=== PATIENT | female | born 1990 | race Hispanic/Latino ===

== ENCOUNTER 2018-05-17 21:06 | Emergency (ER) | payer OTHER ==
[2018-05-17 21:58] LABS: KETONE, URINE AUTO RFX NEGATIVE (NEGATIVE); LEUKOCYTE ESTERASE UR AUTO RFX 3+ (NEGATIVE); NITRITE, URINE AUTO RFX NEGATIVE (NEGATIVE); RBC, URINE AUTO RFX 24 /HPF (0-3); SQUAM EPITHELIAL CELL UR AURFX 1 /HPF (0-6); WBC, URINE AUTO RFX 146 /HPF (0-3)
[2018-05-17] MEDS: BACTRIM 160MG/800MG DS TAB PO (22:35)
== END 2018-05-17 22:37 | disposition home or self-care (01) ==
LOC: M ED 21:06
DX: N30.00 Acute cystitis without hematuria (principal)
CPT/HCPCS: 81001

== ENCOUNTER 2019-01-16 11:14 | Outpatient (CLI) | payer OTHER ==
[~2019-01-16] VITALS: Ht 170.2 cm; Wt 78.1 kg
[~2019-01-16 11:14] MED LIST: BACT800T5 PO
[2019-01-16 11:27] VITALS: BP 123/71
[2019-01-16] MEDS ORDERED: PRENTAB7 PO (11:32)
[2019-01-16 12:12] VITALS: BP 125/60
[2019-01-16] MEDS ORDERED: PROG50IN5 IM (12:53)
== END 2019-01-16 12:22 | disposition home or self-care (01) ==
LOC: M LDO 11:14
PROVIDERS: ATTEND Obstetrics & Gynecology
DX: O26.892 Other specified pregnancy related conditions, second trimester (principal); Z3A.24 24 weeks gestation of pregnancy; N89.8 Other specified noninflammatory disorders of vagina
CPT/HCPCS: 76815; G0378; G0463

== ENCOUNTER 2019-04-29 14:05 | Inpatient (IN) | payer OTHER ==
[2019-04-29] VITALS (16 sets, daily range): BP systolic 104–134; BP diastolic 53–74
[~2019-04-29] VITALS: Ht 170.2 cm; Wt 79.0 kg
[~2019-04-29 14:05] MED LIST changes: +PRENTAB7 PO; +PROG50IN5 IM
[2019-04-29] MEDS ORDERED: VITA-158 PO (15:03)
[2019-04-29] MEDS ORDERED: FERR325T3 PO (15:03)
[2019-04-29] MEDS ORDERED: LR 1,000 ML IV SCH (15:20)
[2019-04-29] MEDS ORDERED: PENICILLIN G POTASSIUM IV 5 MU in D5W MINI-BAG PLUS 100 ML IV STA (16:03)
[2019-04-29] MEDS ORDERED: LACTATED RINGER'S 1000 ML IV STA (16:03)
[2019-04-29] MEDS ORDERED: miSOPROStol 25 MCG 1/4 TAB (S0191) PV ONE (16:15)
[2019-04-29 16:20] LABS: HEMATOCRIT 35.9 % (36.0-47.0); HEMOGLOBIN 12.2 g/dl (12.0-15.5); MEAN CORPUSCULAR HEMOGLOBIN 28.7 pg (27.0-33.0); MEAN CORPUSCULAR VOLUME 84.5 fl (80.0-96.0); PLATELET COUNT, AUTOMATED 233 10^3/uL (150-450); RED BLOOD COUNT 4.25 10^6/uL (4.00-5.40); WHITE BLOOD COUNT 10.9 10^3/uL (4.0-10.0)
--- NOTE | 2019-04-29 16:37 | HPEPDOC ---
Obstetrical History & Physical General Date of Admission Apr 29, 2019 at 14:05 History of Present Illness Danielle is a 29yo with SIUP at 38w5d by lmp c/w early u/s presenting for IOL for continued decreased movement. She was seen the end of last week in clinic for DFM and had BPP 06/29, came back today for NST. She notes that she felt no movement at all yesterday and only 1 movement this morning. Prior to the end of last week, she felt daily robust movement, so this is a significant change and she has been quite worried. Given the persistence of DFM, especially since patient felt no movement at all yesterday, and only 1 movement this morning, my recommendation was for IOL. No LOF/vaginal bleeding, no regular/painful ctx. Chief Complaint: Induction of labor Information Provided By: Patient Care Care: Good Care Dating Final EDC: May 08, 2019 Final EDC by: LMP, 1st trimester (US) Antepartum Course Diagnos(e)s History of prior delivery at 35wk in 2009 (received Terminous), reactive RPR but negative FTS-AB, anemia on iron/vitamin C, varicella non-immune, Rh negative (rhogam 02/14), GBS carrier Height (inches): 64 Pre- weight (lbs.): 163 Admission Weight (lbs.): 176 Change in Weight (lbs.): 13 Past Medical History Past Obstetrical History : Past Obstetrical History: Multigravida (2006 uncomplicated 37wk F [id number], 2009 uncomplicated PTD at 35wk M [id number] ( in NICU 20d per patient, maybe related to infection?)) MARKETING REP History: Abnormal Pap (LGSIL Oct 2018 will have PP colpo) Past Medical History Medical History Benign Surgical History: Breast augmentation Family History Significant Family History: No pertinent family hx Social History Marital Status: Family situation: Spouse/partner home Psychosocial History: No pertinent psych hx * Smoker: non-smoker Alcohol: Denies Drugs: denies Imunizations Tdap status: current Influenza Status: current Allergies Coded Allergies: No Known Allergies (Unverified , 05/17/18) Medications Scheduled Ascorbic Acid (Vitamin C) 500 Mg Tablet, 1 TAB PO TID for WITH IRON Ferrous Sulfate (Ferrous Sulfate) 325 Mg Tablet.dr, 1 TAB PO TID Pnv No.95/Ferrous Fum/Folic AC ( Vitamins Tablet) 1 Tab Tab, 1 TAB PO DAILY Physical Examination Physical Examination GENERAL: Alert and oriented times three. ABDOMEN: Gravid and non-tender to touch. FETUS: Is vertex (VTX) by sterile vaginal examination (SVE) EXTREMITIES: No edema. Laboratory Data [facility] Laboratory Tests 2 04/29/19 14:19: Serology Scanned Report Hepatitis B Testing 04/29/19 15:39: CBC/BMP H/H 10.6/32.4, plt 221 Pertinent Laboratoy Data Blood Type: O- RBC Antibody Screen: Negative HIV: Negative Hepatitis B: Negative Hepatitis C: Unknown Rapid Plasma Reagin: Positive (T pal antibody negative) Rubella: Immune Varicella: Nonreactive Chlamydia/Gonorrhea: Negative Group B Streptococcus: Positive Glucose Tolerance Test: 148 (83/147/128/116) Anatomy Ultrasound Ultrasound Date: Dec 19, 2018 Placenta Location: Posterior Normal Anatomy: Yes Placenta Previa: No Steroid Therapy Steroid Therapy: No Vaginal Examination Dilation: 4 cm Effacement: 70% Station: -2 Cervical Consistency: Soft Cervical Position: Middle Presentation: Cephalic presentation Assessment Heart Rate (FHR): 120 Variability: Moderate Accelerations: Positive Decelerations: None, Late (subtle- resolved with IV hydration and re- positioning) Tocometer Contractions: Yes Frequency: irregular Assessment/Plan Assessment Danielle is a 29yo with SIUP at 38w5d by lmp c/w early u/s presenting for IOL for continued decreased movement. Cat II FHRT originally with some subtle late decels that resolved with IV hydration and re-positioning, Vitals wnl. Exam benign. SCE /-2. Cephalic by SCE. course/PMHx significant for: History of prior delivery at 35wk in 2009 (received Terminous), reactive RPR but negative FTS-AB, anemia on iron/vitamin C, varicella non-immune, Rh negative (rhogam 02/14), GBS carrier Plan Admit and orient. Plant Chief and consent. Diet: regular for dinner, then clear liquids Group B Streptococcus (GBS) positive: PCN per protocol Labs and intravenous (IV) per unit protocol. Counseled on Pitocin and induction of labor (IOL). Lactated Ringers (LR): Bolus 1000 mL, then at 125 mL/hr. Anticipate normal spontaneous delivery () Candidate for epidural if desired MD Gissel Davalos Katrina D MD Apr 29, 2019 16:37
[2019-04-29] MEDS ORDERED: OXYTOCIN DRIP 30 UNITS in APPROPRIATE DILUENT 1 EA IV SCH (16:45)
[2019-04-29] MEDS: PENICILLIN G POTASSIUM IV 2.5 MU in APPROPRIATE DILUENT 1 EA IV SCH (20:17)
--- NOTE | 2019-04-29 20:41 | IPNPDOC ---
Text Note Date of Service The patient was seen on 04/29/19. NOTE Accepting care of Ms. Crowley this evening. She's a 29 yo at 38+5 weeks gestation who was admitted for an IOL for persistent decreased movement over the past week. Her is otherwise uncomplicated. Her cervix was favorable on admission, and her inducti on was started with pitocin. FHR: Cat I with moderate variability, +accels, no decels. Pitocin is currently at 6mU. Will continue to titrate to effect. Epidural if and when patient desires. PCN for GBS prophylaxis. Will recheck PRN and consider AROM if head well engaged. All patient questions answered. Costa Nassar DO VS,Yadira, I+O VS, Yadira, I+O Laboratory Tests 04/29/19 15:39 Red Blood Count 4.25, Mean Corpuscular Volume 84.5, Mean Corpuscular Hemoglobin 28.7, Mean Corpuscular Hemoglobin Concent 34.0, Red Cell Distribution Width 14.4 Vital Signs Date Time Temp Pulse Resp B/P (MAP) Pulse Ox O2 Delivery O2 Flow Rate FiO2 04/29/19 18:46 77 16 111/55 (73) 04/29/19 14:48 98.2 COSTA NASSAR DO Apr 29, 2019 20:41
[2019-04-30] VITALS (11 sets, daily range): BP systolic 100–139; BP diastolic 53–74
[2019-04-30] MEDS: PENICILLIN G POTASSIUM IV 2.5 MU in APPROPRIATE DILUENT 1 EA IV SCH (00:07)
--- NOTE | 2019-04-30 00:37 | IPNPDOC ---
Text Note Date of Service The patient was seen on 04/30/19. NOTE Presented to room for assessment of progress. Cervix: unchanged at 4/80/-2. head ballotable. FHR Cat II, due to occasional late and variable decels. However there is moderate variability and decels responded to IV fluid bolus and positional change. Contractions becoming very close together, and pitocin may need to be decreased. She desires something for pain, but not yet an epidural. Will give dose of stadol and phenergan. Safe to proceed. DO Cesario VS,Yadira, I+O VS, Yadira, I+O Laboratory Tests 04/29/19 15:39 Red Blood Count 4.25, Mean Corpuscular Volume 84.5, Mean Corpuscular Hemoglobin 28.7, Mean Corpuscular Hemoglobin Concent 34.0, Red Cell Distribution Width 14.4 Vital Signs Date Time Temp Pulse Resp B/P (MAP) Pulse Ox O2 Delivery O2 Flow Rate FiO2 04/29/19 18:46 77 16 111/55 (73) 04/29/19 14:48 98.2 COSTA COLES DO Apr 30, 2019 00:36
[2019-04-30] MEDS ORDERED: PROMETHAZINE INJ 25 MG/ML VIAL (J2550) IV ONE (00:45)
[2019-04-30] MEDS ORDERED: BUTORPHANOL 2 MG/ML INJ (J0595) IV ONE (00:45)
[2019-04-30] MEDS ORDERED: OXYTOCIN DRIP 30 UNITS in APPROPRIATE DILUENT 1 EA IV SCH (02:50)
--- NOTE | 2019-04-30 02:59 | DNPDOC ---
[facility] Delivery Note Delivery Note DATE OF DELIVERY: 30Apr2019 at ~0230 PREDELIVERY DIAGNOSIS: 38+6 weeks gestation and and IOL for persistent decreased movement POST DELIVERY DIAGNOSIS: Delivered. PROCEDURE: Spontaneous vaginal delivery INTERACTIVE MULTIMEDIA DESIGNER: Dr. Nassar ANESTHESIA: None ESTIMATED BLOOD LOSS: 300 mL. FINDINGS: Viable female infant, pending weight, Apgars 9/9, loose nuchal cord, DELIVERY SUMMARY: Called to room as patient had spontaneous rupture of mem branes and felt a strong urge to push. Exam revealed fetus at +2 station. She was prepped for delivery. With excellent maternal pushing effort her infant delivered. Presentation was ALINA with restitution to ROT. There was a loose nuchal cord that was delivered through and reduced manually. The left anterior shoulder delivered with gentle traction followed easily by the remainder of the body. The infant was dried and stimulated on the field and a bulb suction was used. The infant was placed on the maternal abdomen and cried vigorously. The three vessel cord was then clamped and cut by me. Third stage was then completed with gentle traction on the cord and it was productive of an intact placenta. The uterine fundus was firmed with massage and pitocin was administered IV bolus. A small, right sublabial laceration was identified. The laceration was then repaired with 4-0 vicryl suture in the usual fashion after injection of lidocaine for analgesia. There was excellent cosmesis and hemostasis. The fundus was palpated again and was firm. Sponge, instrument, and needle counts correct X2. Mother stable when I left the room. DO SANKET Olivia CHRISTOPHER J. DO Apr 30, 2019 02:59
[2019-04-30] MEDS ORDERED: ACETAMINOPHEN TAB 650MG DOSE (2X325MG) PO PRN (03:00)
[2019-04-30] MEDS ORDERED: DOCUSATE SODIUM 100 MG CAP PO PRN (03:00)
[2019-04-30] MEDS ORDERED: IBUPROFEN 800 MG TAB PO PRN (03:00)
[2019-04-30] MEDS ORDERED: RHOGAM 300 MCG (1500 IU) INJ (J2790) IM SCH (03:00)
[2019-04-30] MEDS ORDERED: ONDANSETRON 4MG/2ML VIAL (J2405) IV PRN (03:00)
[2019-04-30] MEDS ORDERED: LIDOCAINE 1% MDV 20ML VIAL SC ONE (03:00)
[2019-04-30] MEDS ORDERED: DIBUCAINE 1% OINTMENT 30GM TOP PRN (03:00)
[2019-04-30] MEDS ORDERED: ACETAMINOPHEN 500 MG TAB PO PRN (03:00)
[2019-04-30] MEDS ORDERED: MEASLES,MUMPS,RUBELLA VACCINE INJ (MMR-II) (90707) SC SCH (03:00)
[2019-04-30] MEDS: PRENATAL VITAMINS CHEWABLE TABLET PO SCH (07:24)
[2019-04-30] MEDS: IBUPROFEN 600 MG TAB PO PRN (07:26)
[2019-05-01 06:00] VITALS: BP 115/60
[2019-05-01] MEDS ORDERED: ACET1TAB55 PO (07:51)
[2019-05-01] MEDS ORDERED: IBUP80TA PO (07:51)
--- NOTE | 2019-05-01 07:52 | DS.PDOC ---
Discharge Summary General Date of Admission Apr 29, 2019 at 14:05 Date of Discharge [id number] Discharge Summary ADMITTING DIAGNOSES: IOL for decr FM DISCHARGE DIAGNOSES: Same, HOSPITAL COURSE: Admitted and delivery uncomplicated, . course uncomplicated. DISCHARGE MEDICATIONS: Motrin, Lanolin DISCHARGE INSTRUCTIONS: Nothing in the vagina for 6 weeks. F/U in OBGYN clinic in 6-8 weeks. Sessions Vital Signs/I&Os Vital Signs Date Time Temp Pulse Resp B/P (MAP) Pulse Ox O2 Delivery O2 Flow Rate FiO2 05/01/19 06:00 97.7 78 17 115/60 (78) 04/30/19 04:55 99 Discharge Medications Scheduled Ascorbic Acid (Vitamin C) 500 Mg Tablet, 1 TAB PO TID for WITH IRON, (Reported) Ferrous Sulfate (Ferrous Sulfate) 325 Mg Tablet.dr, 1 TAB PO TID, (Reported) Pnv No.95/Ferrous Fum/Folic AC ( Vitamins Tablet) 1 Tab Tab, 1 TAB PO DAILY, (Reported) Scheduled PRN Acetaminophen (Acetaminophen) 325 Mg Tablet, 650 MG PO Q4HP PRN for PAIN SCALE 1-5 Ibuprofen (Ibuprofen) 800 Mg Tablet, 800 MG PO Q8HP PRN for PAIN SCALE 6-10 Allergies Coded Allergies: No Known Allergies (Unverified , 05/17/18) SESSIONS,JUSTINE Mcdonald MD May 01, 2019 07:52
--- NOTE | 2019-05-01 07:53 | IPNPDOC ---
Text Note Date of Service The patient was seen on 05/01/19. NOTE PPD2 States feeling well, pain controlled with prescribed meds. Baby bonding and feeding well. No heavy VB. Lochia slowing. Ambulatory. Tolerating PO without issues. Voiding spont. No CP/LP/SOB. VSSAF NAD A&O LE no C/C/E Ut at U-2, firm a/p: Doing well. Cont routine care. D/C today. Sessions VS,Yadira, I+O VSYadira, I+O Vital Signs Date Time Temp Pulse Resp B/P (MAP) Pulse Ox O2 Delivery O2 Flow Rate FiO2 05/01/19 06:00 97.7 78 17 115/60 (78) 04/30/19 04:55 99 SESSIONS,JUSTINE Mcdonald MD May 01, 2019 07:53
[2019-05-01] MEDS: IBUPROFEN 600 MG TAB PO PRN (10:24)
[2019-05-01] MEDS: PRENATAL VITAMINS CHEWABLE TABLET PO SCH (10:24)
== END 2019-05-01 12:04 | disposition home or self-care (01) | DRG 807 ==
LOC: M LDI 14:05 → M OBS 04-30 05:49
PROVIDERS: ADMIT Obstetrics & Gynecology; ATTEND Obstetrics & Gynecology
PROC: 3E033VJ Introduction of Other Hormone into Peripheral Vein, Percutaneous Approach (ICD-10-PCS; 2019-04-29)
PROC: 10E0XZZ Delivery of Products of Conception, External Approach (ICD-10-PCS; principal; 2019-04-30)
PROC: 0HQ9XZZ Repair Perineum Skin, External Approach (ICD-10-PCS; 2019-04-30)
DX: O36.8130 Decreased fetal movements, third trimester, not applicable or unspecified (principal); Z37.0 Single live birth; Z3A.38 38 weeks gestation of pregnancy; O99.824 Streptococcus B carrier state complicating childbirth; O76 Abnormality in fetal heart rate and rhythm complicating labor and delivery; O69.81X0 Labor and delivery complicated by cord around neck, without compression, not applicable or unspecified; O70.0 First degree perineal laceration during delivery

== ENCOUNTER 2019-08-06 02:59 | Emergency (ER) | payer OTHER ==
[~2019-08-06] VITALS: Ht 170.2 cm; Wt 73.6 kg
[2019-08-06 02:59] VITALS: BP 121/66
[~2019-08-06 02:59] MED LIST changes: +ACET1TAB55 PO; +FERR325T3 PO; +IBUP80TA PO; +VITA-158 PO
--- NOTE | 2019-08-06 04:37 | REPVR ---
EXAM: CT Head Without Contrast EXAM DATE/TIME: 08/06/2019 4:21 AM CLINICAL HISTORY: 29 years old, female; Pain; Headache not specified; Additional info: ESPINOSA TECHNIQUE: Imaging protocol: Computed tomography of the head without contrast. Radiation optimization: All CT scans at this facility use at least one of these dose optimization techniques: automated exposure control; mA and/or kV adjustment per patient size (includes targeted exams where dose is matched to clinical indication); or iterative reconstruction. COMPARISON: No relevant prior studies available. FINDINGS: Brain: Normal. No hemorrhage. Unremarkable white matter. No mass effect. Ventricles: Normal. No ventriculomegaly. Bones/joints: Unremarkable. No acute fracture. Sinuses: Visualized sinuses are unremarkable. No fluid levels. Mastoid air cells: Visualized mastoid air cells are well aerated. Soft tissues: Unremarkable. IMPRESSION: Negative noncontrast head CT. Electronically signed by: Jonathan Perez On 08/06/2019 04:37:25 AM
[2019-08-06] MEDS ORDERED: traMADol 50 MG TAB PO ONE (05:15)
[2019-08-06] MEDS ORDERED: traMADol 50 MG TAB (BULK 4 TAB ED) PO ONE (05:15)
[2019-08-06] MEDS ORDERED: IPRATROPIUM 0.5MG/ALBUTEROL 2.5MG INH SOL UD 3ML (DUONEB)(J7620) NEB ONE (05:15)
[2019-08-06] MEDS ORDERED: traMADol 50 MG TAB As Ordered ONE (05:16)
[2019-08-06] MEDS ORDERED: ACETAMINOPHEN 500 MG TAB PO ONE (05:45)
[2019-10-31] MEDS ORDERED: PRENTAB9 PO (12:23)
== END 2019-08-06 05:39 | disposition home or self-care (01) ==
LOC: M ED 02:59
DX: G44.209 Tension-type headache, unspecified, not intractable (principal)

== ENCOUNTER 2019-08-08 08:39 | Emergency (ER) | payer OTHER ==
[~2019-08-08] VITALS: Ht 170.2 cm; Wt 72.7 kg
[2019-08-08] MEDS ORDERED: KETOROLAC TROMETHAMINE 10 MG TAB PO ONE (10:15)
[2019-08-08] MEDS ORDERED: KETO10TAB PO (11:07)
[2019-08-08 11:12] VITALS: BP 119/62
[2019-10-31] MEDS ORDERED: PRENTAB9 PO (12:23)
== END 2019-08-08 11:17 | disposition home or self-care (01) ==
LOC: M ED 08:39
DX: G44.209 Tension-type headache, unspecified, not intractable (principal); Z79.899 Other long term (current) drug therapy

== ENCOUNTER 2019-11-07 09:58 | Day surgery (SDC) | payer OTHER ==
[~2019-11-07] VITALS: Ht 170.2 cm; Wt 71.7 kg
[~2019-11-07 09:58] MED LIST changes: +KETO10TAB PO; +KETOROLAC 60 MG/2 ML VIAL (J1885) As Ordered ONE; +LIDOCAINE 2% INJ 100 MG/5 ML SDV (FOR ANES.) As Ordered ONE; +LR 1,000 ML IV ONE; +MIDAZOLAM INJ 2 MG/2 ML VIAL (J2250) As Ordered ONE; +ONDANSETRON 4MG/2ML VIAL (J2405) As Ordered ONE; +PRENTAB9 PO; +PROPOFOL 200 MG/20 ML VIAL As Ordered ONE; +dexameTHASONE 4 MG/ML 1ML VIAL (J1100) As Ordered ONE; +fentaNYL 100 MCG/2 ML INJECTION (J3010) As Ordered ONE
[2019-11-07 10:24] LABS: HEMATOCRIT 43.9 % (36.0-47.0); MEAN CORPUSCULAR HGB CONC 31.9 g/dl (32.0-36.5); MEAN CORPUSCULAR VOLUME 84.7 fl (80.0-96.0); PLATELET COUNT, AUTOMATED 283 10^3/uL (150-450); RED BLOOD COUNT 5.18 10^6/uL (4.00-5.40); WHITE BLOOD COUNT 9.4 10^3/uL (4.0-10.0)
[2019-11-07 10:57] LABS: HCG, SERUM QUALITATIVE NEGATIVE (NEGATIVE)
[2019-11-07] MEDS ORDERED: LIDOCAINE W/EPINEPHRINE 1% 20ML VIAL As Ordered ONE (12:05)
[2019-11-07] MEDS ORDERED: IODINE STRONG SOLN 15 ML BTL As Ordered ONE (12:44)
[2019-11-07 13:45] VITALS: BP 113/62
[2019-11-07] MEDS ORDERED: PERCOCET 5MG/325MG TAB PO PRN (14:00)
[2019-11-07] MEDS ORDERED: fentaNYL 100 MCG/2 ML INJECTION (J3010) IV PRN (14:00)
[2019-11-07] MEDS ORDERED: ONDANSETRON 4MG/2ML VIAL (J2405) IV PRN (14:00)
[2019-11-07] MEDS ORDERED: LR 1,000 ML IV SCH (14:00)
--- NOTE | 2019-11-11 11:51 | RO ---
DATE OF PROCEDURE: 11/07/2019 PREPROCEDURE DIAGNOSIS: Cervical dysplasia. POSTPROCEDURE DIAGNOSIS: Cervical dysplasia. PROCEDURE: Loop electrosurgical excision procedure. SURGEON: Dr. Nassar NEWSPAPER CLIPPER: None. ANESTHESIA: Monitored anesthesia care (MAC). FLUIDS: 300 ML of lactated Ringers (LR). URINE OUTPUT: 150 mL via Osorio catheter. ESTIMATED BLOOD LOSS: 3 mL. COMPLICATIONS: None. ANTIBIOTICS: None indicated. DETAILED PROCEDURE DESCRIPTION: The risks, benefits, indications, and alternatives of the procedure were reviewed with the patient and informed consent was obtained. The patient was taken to the operating room where IV sedation was obtained without difficulty. The patient was then placed in the lithotomy position using Ryan stirrups. The patient was then prepped and draped in the usual sterile fashion, and the bladder was drained using in and out catheter. A sterile Graves speculum was then placed into the patient's vagina and the cervix was visualized. A paracervical block was then performed using approximately 10 mL of Lidocaine with epinephrine. Lugol's solution was then copiously applied to the cervix which highlighted a lesion from the 12 to the 6 o'clock position of the cervix. The LEEP device was then set to 60-60 blend and activated. The Loop electrocautery wire was passed across the external cervical os in a single pass. Production of an adequate tissue was obtained and sent to pathology for review. A second pass with the loop electrocautery wire was then made to obtain an endocervical specimen in a single pass. Another adequate tissue sample was obtained and sent to pathology for review. Superficial electrocoagulation of the cervical stroma was then performed with excellent hemostasis achieved. Monsel's solution was then copiously applied to the cervix. Inspection revealed excellent hemostasis. All instruments were then removed from the patient's vagina. At the completion of the case, sponge, instrument and needle counts were correct times two. The patient tolerated the procedure well and was taken to the recovery room in stable condition. LAKISHA
== END 2019-11-07 14:01 | disposition home or self-care (01) ==
LOC: M SDC 09:58
PROVIDERS: ATTEND Obstetrics & Gynecology
DX: N87.0 Mild cervical dysplasia (principal); N87.1 Moderate cervical dysplasia
CPT/HCPCS: 36415; 57522; 84703; 85027; 88307; J1100; J1885; J2250; J2405; J3010

== ENCOUNTER 2021-01-01 16:07 | Emergency (ER) | payer OTHER ==
[~2021-01-01] VITALS: Ht 170.2 cm; Wt 76.0 kg
[~2021-01-01 16:07] MED LIST changes: -KETOROLAC 60 MG/2 ML VIAL (J1885) As Ordered ONE; -LIDOCAINE 2% INJ 100 MG/5 ML SDV (FOR ANES.) As Ordered ONE; -LR 1,000 ML IV ONE; -MIDAZOLAM INJ 2 MG/2 ML VIAL (J2250) As Ordered ONE; -ONDANSETRON 4MG/2ML VIAL (J2405) As Ordered ONE; -PROPOFOL 200 MG/20 ML VIAL As Ordered ONE; -dexameTHASONE 4 MG/ML 1ML VIAL (J1100) As Ordered ONE; -fentaNYL 100 MCG/2 ML INJECTION (J3010) As Ordered ONE
--- OUTSIDE RECORDS SUMMARY | 2021-01-01 16:13 | CCD ---
Author Author [facility] Organization [facility] Address Unknown Phone Unavailable Support Name Relationship Address Phone MAXIMINO FIORE Next Of Kin [id number] [place], [place] [phone] URIEL HUMPHREY Next Of Kin [address] [place] [address] UE Next Of Kin Unknown Unavailable MAXIMINO RAHMAN Next Of Kin [address] [place], [place] [phone] Re-disclosure Warning The records that you are about to access may contain information from federally-assisted alcohol or drug abuse programs. If such information is present, then the following federally mandated warning applies: This information has been disclosed to you from records protected by federal confidentiality rules (42 CFR part 2). The federal rules prohibit you from making any further disclosure of this information unless further disclosure is expressly permitted by the written consent of the person to whom it pertains or as otherwise permitted by 42 CFR part 2. A general authorization for the release of medical or other information is NOT sufficient for this purpose. The Federal rules restrict any use of the information to criminally investigate or prosecute any alcohol or drug abuse patient.The records that you are about to access may contain highly sensitive health information, the redisclosure of which is protected by Article 27-F of the [facility] Public Health law. If you continue you may have access to information: Regarding HIV / AIDS; Provided by facilities licensed or operated by the [facility] Office of Mental Health; or Provided by the [facility] Office for People With Developmental Disabilities. If such information is present, then the following [facility] mandated warning applies: This information has been disclosed to you from confidential records which are protected by state law. State law prohibits you from making any further disclosure of this information without the specific written consent of the person to whom it pertains, or as otherwise permitted by law. Any unauthorized further disclosure in violation of state law may result in a fine or skilled nursing sentence or both. A general authorization for the release of medical or other information is NOT sufficient authorization for further disc losure. Insurance Providers Payer name Policy type / Coverage type Policy ID Covered libertarian ID Covered libertarian's relationship to damon Policy Damon Plan Information [facility] [id number] 2 [id number] [facility] [id number]
--- OUTSIDE RECORDS SUMMARY | 2021-01-01 17:00 | CCD ---
Author Author [facility] Organization [facility] Address Unknown Phone Unavailable Support Name Relationship Address Phone MAXIMINO FIORE Next Of Kin [address] [place], [place] [phone] URIEL HUMPHREY Next Of Kin [address] [place] [address] UE Next Of Kin Unknown Unavailable MAXIMINO ARHMAN Next Of Kin [address] [place], [place] [phone] Re-disclosure Warning The records that you are [...] is protected by Article 27-F of the [facility] Public Health law. If you continue you may have access to information: Regarding HIV / AIDS; Provided by facilities licensed or operated by the [facility] Office of Mental Health; or Provided by the [facility] Office for People With Developmental Disabilities. If such information is present, then the following [facility] mandated warning applies: This information has been [...] law may result in a fine or [place] [facility] [place] sentence or both. A general authorization for the release of medical or other information is NOT sufficient authorization for further disc losure. Insurance Providers Payer name Policy type / Coverage type Policy ID Covered libertarian ID Covered libertarian's relationship to damon Policy Damon Plan Information [facility] [id number] [facility] [id number]
[2021-01-01] MEDS ORDERED: ACETAMINOPHEN 500 MG TAB PO ONE (17:15)
[2021-01-01] MEDS ORDERED: IBUPROFEN 600MG TAB PO ONE (17:15)
[2021-01-01] MEDS ORDERED: LIDOCAINE 4% CREAM 5GM (LMX4) TOP ONE (17:15)
[2021-01-01] MEDS ORDERED: ANEC4CRE3 TOP (17:36)
[2021-01-01 17:50] VITALS: BP 130/68
== END 2021-01-01 17:51 | disposition home or self-care (01) ==
LOC: M ED 16:07
DX: N64.4 Mastodynia (principal); D50.9 Iron deficiency anemia, unspecified

== ENCOUNTER → 2021-05-19 | Outpatient (CLI) | payer OTHER ==
[~2021-05-19] MED LIST changes: +ANEC4CRE3 TOP; +GASTROGRAFIN SOLUTION 30ML (Q9963) As Ordered ONE; +ISOVUE-370 76% 100ML VIAL As Ordered ONE
--- NOTE | 2021-05-19 17:14 | REP ---
INDICATION: LOWER ABD PAIN 2 DENSITIES RT AURELIA/PELVIS. COMPARISON: None. TECHNIQUE: Standard helical technique after the intravenous administration of 100 cc Isovue 370 and oral bowel preparatory contrast administration. FINDINGS: The lung bases are clear. The liver, gallbladder, spleen, pancreas, adrenal glands, and kidneys are within normal limits. The abdominal aorta and para-aortic regions are within normal limits. The bowel loops and the mesenteries are within normal limits. There is no free fluid or free air. There is no mass or adenopathy. There is a trace amount of free fluid in the pelvis which is likely physiologic. Bone window technique throughout the examination shows the osseous structures to be within normal limits. IMPRESSION: CT findings are within normal limits. <Electronically signed by Reji Luna > 05/19/21 2155
== END ==
LOC: M RAD 15:11
PROVIDERS: ATTEND Family Medicine
DX: R10.30 Lower abdominal pain, unspecified (principal)
CPT/HCPCS: 74177; Q9963; Q9967

== ENCOUNTER 2022-05-10 23:59 | Inpatient (IN) | payer OTHER ==
[~2022-05-10] VITALS: Ht 170.2 cm; Wt 86.4 kg
[~2022-05-10 23:59] MED LIST changes: -GASTROGRAFIN SOLUTION 30ML (Q9963) As Ordered ONE; -ISOVUE-370 76% 100ML VIAL As Ordered ONE
[2022-05-11] VITALS (7 sets, daily range): BP systolic 119–179; BP diastolic 64–91
[2022-05-11] MEDS ORDERED: TRANEXAMIC ACID INJection 1,000 MG in NS 100 ML IV PRN (00:10)
[2022-05-11] MEDS ORDERED: OXYTOCIN INJ 10 UNITS/ML VIAL (J2590) IV PRN (00:10)
[2022-05-11] MEDS ORDERED: OXYTOCIN DRIP 30 UNITS in IV 1 EA IV PRN ×4 (00:10)
[2022-05-11] MEDS ORDERED: LACTATED RINGER'S 1000 ML IV ONE (00:10)
[2022-05-11] MEDS ORDERED: LR 1,000 ML IV SCH ×2 (00:10→02:00)
[2022-05-11 00:41] LABS: HEMATOCRIT 37.9 % (36.0-47.0); HEMOGLOBIN 12.5 g/dl (12.0-15.5); MEAN CORPUSCULAR HEMOGLOBIN 27.9 pg (27.0-33.0); MEAN CORPUSCULAR VOLUME 84.6 fl (80.0-96.0); PLATELET COUNT, AUTOMATED 242 10^3/uL (150-450); RED BLOOD COUNT 4.48 10^6/uL (4.00-5.40); WHITE BLOOD COUNT 10.4 10^3/uL (4.0-10.0)
[2022-05-11 01:24] LABS: CORD GAS ABE A -2.1; CORD GAS ABE V -1.6; CORD GAS HCO3 A 23.5 MEQ/L; CORD GAS HCO3 V 23.4 MEQ/L; CORD GAS O2 SAT A 78.2 %; CORD GAS O2 SAT V 83.6 %; CORD GAS PCO2 A 42.8 mmHg; CORD GAS PCO2 V 40.9 mmHg; CORD GAS PH A 7.357 UNITS; CORD GAS PH V 7.376 UNITS; CORD GAS PO2 A 32.6 mmHg; CORD GAS PO2 V 36.8 mmHg; CORD GAS SBC A 22.2 MEQ/L; CORD GAS SBC V 22.7 MEQ/L; CORD GAS TCO2 A 24.8 MEQ/L; CORD GAS TCO2 V 24.7 MEQ/L
[2022-05-11] MEDS ORDERED: ACETAMINOPHEN 500 MG TAB PO PRN (02:00)
[2022-05-11] MEDS ORDERED: DOCUSATE SODIUM 100MG CAPSULE PO PRN (02:00)
[2022-05-11] MEDS ORDERED: DIBUCAINE 1% OINTMENT 30GM TOP PRN (02:00)
[2022-05-11] MEDS ORDERED: RHOGAM 300 MCG (1500 IU) INJ (J2790) IM SCH (02:00)
[2022-05-11] MEDS ORDERED: IBUPROFEN 600MG TAB PO PRN (02:00)
[2022-05-11] MEDS ORDERED: ACETAMINOPHEN TAB 650MG DOSE (2X325MG) PO PRN (02:00)
[2022-05-11] MEDS ORDERED: MOM 30ML SUSPENSION UDC PO PRN (02:00)
[2022-05-11] MEDS ORDERED: TRANEXAMIC ACID INJection 1,000 MG in NS 100 ML IV ONE (02:00)
[2022-05-11] MEDS ORDERED: OXYTOCIN INJ 10 UNITS/ML VIAL (J2590) IV ONE (02:00)
[2022-05-11] MEDS ORDERED: METHYLERGONOVINE MALEATE 0.2 MG TAB PO PRN (02:00)
[2022-05-11] MEDS ORDERED: OXYTOCIN DRIP 30 UNITS in IV 1 EA IV SCH ×4 (02:00)
[2022-05-11] MEDS ORDERED: ANUSOL HC CREAM 30GM TOP PRN (02:00)
[2022-05-11] MEDS: PRENATAL VITAMINS CHEWABLE TABLET PO SCH (08:27)
[2022-05-12 05:44] VITALS: BP 127/61
[2022-05-12] MEDS ORDERED: COLA100C5 PO (06:02)
[2022-05-12] MEDS ORDERED: IBUP-1022 PO (06:02)
[2022-05-12] MEDS ORDERED: ACET1TAB55 PO (06:02)
[2022-05-12] MEDS ORDERED: PRENCHW PO (06:02)
[2022-05-12 06:32] LABS: HEMOGLOBIN 12.3 g/dl (12.0-15.5); MEAN CORPUSCULAR HEMOGLOBIN 27.9 pg (27.0-33.0); MEAN CORPUSCULAR HGB CONC 32.4 g/dl (32.0-36.5); MEAN CORPUSCULAR VOLUME 86.2 fl (80.0-96.0); PLATELET COUNT, AUTOMATED 218 10^3/uL (150-450); RED BLOOD COUNT 4.41 10^6/uL (4.00-5.40); WHITE BLOOD COUNT 12.7 10^3/uL (4.0-10.0)
[2022-05-12] MEDS: PRENATAL VITAMINS CHEWABLE TABLET PO SCH (10:21)
[2022-05-13] MEDS ORDERED: MEASLES,MUMPS,RUBELLA VACCINE INJ (MMR-II) (90707) SC.IMMUN ONE (09:00)
== END 2022-05-12 11:10 | disposition home or self-care (01) | DRG 807 ==
LOC: M LDO 23:59 → M LDI 05-11 00:09 → M OBS 05-11 02:43
PROVIDERS: ADMIT Obstetrics & Gynecology; ATTEND Obstetrics & Gynecology
PROC: 10E0XZZ Delivery of Products of Conception, External Approach (ICD-10-PCS; principal; 2022-05-11)
DX: O62.3 Precipitate labor (principal); Z37.0 Single live birth; Z3A.39 39 weeks gestation of pregnancy; O69.81X0 Labor and delivery complicated by cord around neck, without compression, not applicable or unspecified

== ENCOUNTER 2022-10-25 16:50 | Emergency (ER) | payer OTHER ==
[~2022-10-25] VITALS: Ht 170.2 cm; Wt 79.3 kg
[~2022-10-25 16:50] MED LIST changes: +COLA100C5 PO; +IBUP-1022 PO; +PRENCHW PO
[2022-10-25] MEDS ORDERED: IBUPROFEN 600MG TAB PO ONE (20:00)
[2022-10-25 20:25] LABS: BASO # 0.1 10^3/uL (0.0-0.2); BASO % 0.4 % (0.0-1.0); EOS # 0.1 10^3/uL (0.0-0.5); EOS % 0.5 % (0.0-3.0); HEMATOCRIT 42.8 % (36.0-47.0); LYMPH # 3.3 10^3/uL (1.5-5.0); MEAN CORPUSCULAR HEMOGLOBIN 27.3 pg (27.0-33.0); MEAN CORPUSCULAR HGB CONC 32.7 g/dl (32.0-36.5); MEAN CORPUSCULAR VOLUME 83.4 fl (80.0-96.0); MONO # 0.6 10^3/uL (0.0-0.8); MONO % 4.7 % (2.0-8.0); NEUTROPHILS # 8.1 10^3/uL (1.5-8.5); NEUTROPHILS % 67.1 % (36.0-66.0); PLATELET COUNT, AUTOMATED 289 10^3/uL (150-450); RED BLOOD COUNT 5.13 10^6/uL (4.00-5.40)
[2022-10-25 21:09] LABS: BLOOD UREA NITROGEN 19 MG/DL (9-23); CALCIUM LEVEL 10.3 MG/DL (8.5-10.1); CARBON DIOXIDE LEVEL 25 MMOL/L (20-31); CHLORIDE LEVEL 104 MMOL/L (98-107); CREATININE FOR GFR 0.52 MG/DL (0.55-1.30); GLOMERULAR FILTRATION RATE > 60.0 (>60); GLUCOSE, FASTING 156 MG/DL (60-100); SODIUM LEVEL 138 MMOL/L (136-145)
[2022-10-25] MEDS ORDERED: CEFD300C41 PO (21:38)
[2022-10-25] MEDS ORDERED: COLA100C5 PO (21:38)
[2022-10-25] MEDS ORDERED: CEFDINIR 300 MG CAP (OMNICEF) PO ONE (21:45)
[2022-10-25 22:04] VITALS: BP 122/72
== END 2022-10-25 22:07 | disposition home or self-care (01) ==
LOC: M ED 16:50
DX: N39.0 Urinary tract infection, site not specified (principal); N10 Acute pyelonephritis; N20.0 Calculus of kidney; K59.00 Constipation, unspecified; D50.9 Iron deficiency anemia, unspecified